=== PATIENT | female | born 1975 | race Asian ===

== ENCOUNTER 2025-02-22 06:03 | Inpatient (IN) | payer MEDICARE, BC, SELFPAY ==
[2025-02-22] VITALS (15 sets, daily range): BP systolic 114–174; BP diastolic 81–96; BMI 20.1
[2025-02-22] MEDS: SOLU-CORTEF 100 MG IV ×2 (02:02→02:47)
[2025-02-22] MEDS: NSS 1000 IV ×3 (02:02→10:50)
[2025-02-22] MEDS: BENADRYL 50 MG IV ×2 (02:02→20:06)
[2025-02-22] MEDS: PEPCID 20 MG IV ×3 (02:02→20:02)
[2025-02-22] MEDS: DILAUDID 2 MG IV (02:26)
[2025-02-22 02:27] LABS: HCG, Serum Qualitative Screen Negative; Hematocrit 40.0 % (37.0-47.0); Hemoglobin 14.2 g/dL (12.0-16.0); Mean Corp Hgb Conc. 35.5 g/dL (33.0-37.0); Mean Corpuscular Volume 80.3 fL (81.0-99.0); Nucleated Red Blood Cells % 0 %; Platelet Count 334 10^3/uL (130-400); Red Cell Dist. Width 13.9 % (11.5-14.5)
[2025-02-22 02:33] LABS: ALT (SGPT) 18 U/L (0-35); AST (SGOT) 21 U/L (14-36); Albumin 4.5 g/dl (3.5-5.0); Alkaline Phosphatase 75 U/L (38-126); Blood Urea Nitrogen 18 mg/dl (7-17); Calcium 9.5 mg/dl (8.4-10.2); Carbon Dioxide 23 mmol/L (22-30); Chloride 103 mmol/L (98-107); Estimated Creatinine Clearance 100 ml/min; Glucose 104 mg/dl (70-99); Potassium 3.9 mmol/L (3.5-5.1); Sodium 135 mmol/L (135-145); Total Protein 6.8 g/dl (6.3-8.2); eGFR > 60.00
[2025-02-22] MEDS: ZOFRAN 4 MG IV (02:47)
[2025-02-22] MEDS: BENADRYL 25 MG IV ×3 (02:47→17:25)
[2025-02-22 03:05] LABS: Cortisol, Random 2.6 ug/dl
[2025-02-22] MEDS: TORADOL 15 MG IV (03:38)
[2025-02-22] MEDS: DILAUDID 1 MG IV ×2 (03:39→08:02)
--- NOTE | 2025-02-22 04:10 | ED.GENMED ---
History of Present Illness
General
Chief Complaint: Abnormal Lab Value
Source: patient
Exam Limitations: none
Time Seen by Provider: 02/22/25 02:00
Nursing documentation reviewed up to this point in time: agreed with
History of Present Illness
History of Present Illness:
Note:
CHIEF COMPLAINT(S)
Breakthrough pain, severe musculoskeletal discomfort, possible infection.
HISTORY OF PRESENT ILLNESS
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 The patient presents with severe
musculoskeletal pain described as a burning sensation, likened to 'burning barbed wire wrapping around,' primarily affecting the central body, spine, and radiating upwards. The symptoms began escalating this weekend, requiring an adjustment of
prednisone to 15 mg, which she states is usually managed between 5 to 10 mg as prescribed by her focusing machine operator. She also describes experiencing extreme fatigue and sensitivity to touch, to the extent that even washing her hair is painful.
Recently, the patient had a severe episode last week with similar symptoms, which resolved after bed rest for approximately 72 hours. During that episode, white blood cell count was elevated to 21,000, prompting her focusing machine operator to advise further
evaluation for possible infection. She acknowledges a likely need for hospital admission, reporting that she typically gets admitted for similar episodes and receives Solu-Cortef.
The patient has a known regimen of medications adjusted in consultation with her healthcare providers at [place], including prednisone for lupus and management of her diabetes and thyroid issues by the endocrinology team. She reports taking
Valtrex for ulcer management as prescribed when she experiences immune-related blisters.
PAST MEDICAL AND SURGICAL HISTORY
- Systemic lupus erythematosus
- Adrenal insufficiency
- Diabetes mellitus secondary to steroid use
- Myocarditis (currently in remission)
- Early menopause due to cyclophosphamide and rituximab use
CHRONIC MEDICAL CONDITIONS SIGNIFICANTLY AFFECTING CARE
- Systemic lupus erythematosus
- Diabetes mellitus
- Adrenal insufficiency
- Myocarditis
ALLERGIES
The patient mentions having numerous allergies but specifies none in this session.
PAST MEDICAL HISTORY
As above in past medical and surgical history.
MEDICATIONS
- Prednisone, daily management dose typically 5-10 mg. Currently, self-adjusted to 15 mg due to symptom severity.
- Quetiapine taken at 7 PM to aid with rest in anticipation of an event.
- Trazodone 50 mg taken in the evening.
- Valtrex, taken for blisters tied to immune flair.
- Dilaudid, requested for breakthrough pain management.
REVIEW OF SYSTEMS
- Musculoskeletal: Severe central and spinal pain radiating up, described as burning.
- Integumentary: Recent rash with severe photosensitivity, cleared after management.
- Neurological: Episodes of dizziness, extreme fatigue.
- Endocrine: Adrenal insufficiency, steroid management challenges.
- Cardiovascular: Myocarditis in past remission, recent cardiac MRI investigated.
- General: Fatigue, feeling weak and exhausted.
PHYSICAL EXAM
General: Alert, moderate acute distress.
Skin: Warm, dry.
Head: Normocephalic, atraumatic.
Neck: Supple, trachea midline.
Eye Ears, nose, mouth and throat: Oral mucosa moist.
Cardiovascular: Normal peripheral perfusion, no edema.
Respiratory: Respirations are non-labored.
Gastrointestinal: Abdomen nondistended.
Back: Normal range of motion, normal alignment.
Musculoskeletal: Normal ROM, normal strength.
Neurological: Alert and oriented to person, place, time, and situation, no focal neurological deficit observed.
Psychiatric: Cooperative, appropriate mood & affect. Pressured speech
PROBLEM LIST
Acute Problems:
- Exacerbation of lupus-related symptoms
- Possible infection indicated by elevated WBC
Chronic Problems:
- Systemic lupus erythematosus
- Adrenal insufficiency
- Diabetes mellitus
- Myocarditis (in remission)
PLAN
- Admission for thorough evaluation and management.
- Plan to manage acute symptoms with continuation of Solu-Cortef as previously effective.
- Assess for potential infection with bacterial cultures given elevated WBC counts historically linked to infection risk.
- Pain management with Dilaudid and Toradol as needed.
- Monitor corticosteroid use with hospital guidance.
DIFFERENTIAL DIAGNOSIS
The Differential Diagnosis includes, in no particular order and is not limited to:
- Lupus flare
- Adrenal insufficiency crisis
- Steroid-induced hyperglycemia
- Infection (bacterial or viral)
- Fibromyalgia
- Peripheral neuropathy
- Myopathy
- Central nervous system autoimmune activity
- Medication-induced adverse effects
- Hypersensitivity reaction
Disposition:
SUMMARY OF ENCOUNTER
The patient is a 49-year-old female with a history of adrenal insufficiency and systemic lupus erythematosus who presented with symptoms suggesting acute adrenal insufficiency. The patient received Solu-Cortef in the emergency department, resulting
in some improvement. She has been receiving pain and nausea medications. Her white blood cell count is currently approximately 17,000, a decrease from an elevated count of 21,000 noted at an outside hospital the previous week. Given her medical
status, the decision was made to admit her for further management and evaluation.
DISPOSITION
Admit to hospital service.
ASSESSMENT
Acute adrenal insufficiency in the context of systemic lupus erythematosus flare.
EMERGENCY TREATMENTS ADMINISTERED
Solu-Cortef administered for adrenal insufficiency management.
INDEPENDENT REVIEW OF LABS AND INTERPRETATION OF TESTS
My independent review of the Complete Blood Count (CBC) shows leukocytosis with a white blood cell count of approximately 17,000.
PLAN
Admission to the hospital for further evaluation and management of acute adrenal insufficiency and lupus flare, along with monitoring and addressing potential infection.
MEDICATION RECONCILIATION
Administered Solu-Cortef for acute adrenal insufficiency management.
MEDICAL DECISION MAKING
-Complexity of Data Reviewed: Chronic conditions affecting care include systemic lupus erythematosus, adrenal insufficiency, and diabetes mellitus. Differential Diagnosis includes lupus flare, adrenal insufficiency crisis, infection, and potential
medication effects.
-Data:
Category 1
The reviewed lab test includes a Complete Blood Count (CBC) indicating leukocytosis.
-Risk:
Prescription medication was administered. Admission/observation was considered for complex management.
DIAGNOSIS
Acute Adrenal Insufficiency (E27.40)
Systemic Lupus Erythematosus (M32.9)
Past History
Past History
ED Past Medical History: HTN, Hypothyroidism and Other (SLE, pulmonary embolism, cardiac arrest, pyelonephritis, antiphospholipid syndrome, Lupus, Restrictive airway disease)
ED Past Surgical History: Cholecystectomy
Social History
Tobacco: Non-smoker
Alcohol: Occasional
Personal: Single
Living: with family
Employment: Employed
Family History
Family History: CAD (dad [place] in 40's from [place] age 65) and Cancer (mother has multiple myeloma)
Phy Exam
Physical Exam
Physical Exam:
.
Course
Orders/Labs/Results
Orders:
Orders
02/22/25 01:53
Hydrocortisone Sod Succinate [Solu-Cortef] 100 mg .ROUTE .[facility]
02/22/25 01:58
Diphenhydramine [Benadryl] 50 mg IV NOW STA
02/22/25 01:59
0.9% Sodium Chloride 1000 ml [Nss] 1,000 ml IV BOLUS
Famotidine [Pepcid] 20 mg IV NOW STA
Hydrocortisone Sod Succinate [Solu-Cortef] 100 mg IV NOW STA
02/22/25 02:10
Test Result ONCE
02/22/25 02:11
Complete Blood Count/With Diff Urgent
Comprehensive Metabolic Panel Urgent
Cortisol, Random Urgent
HCG, Serum Qualitative Screen Urgent
02/22/25 02:21
HYDROmorphone [Dilaudid] 2 mg IV NOW STA
02/22/25 02:42
Diphenhydramine [Benadryl] 25 mg IV NOW STA
02/22/25 02:43
Ondansetron Injectable [Zofran] 4 mg IV NOW STA
02/22/25 02:44
Hydrocortisone Sod Succinate [Solu-Cortef] 100 mg IV NOW STA
02/22/25 03:33
HYDROmorphone [Dilaudid] 1 mg IV NOW STA
Ketorolac [Toradol] 15 mg IV NOW STA
02/22/25 03:34
Urinalysis Reflex To Culture Urgent
Date Specimen was Collected: 02/22/25
Time Specimen was Collected: 04:08
02/22/25 03:35
CR Chest - 2 Views Urgent
Comment:
Reason For Exam: elev wbc
02/22/25 03:45
Blood Culture Q30M
CASANDRA Source: Blood/Venous
Specimen Description:
02/22/25 04:15
Blood Culture Q30M
CASANDRA Source: Blood/Venous
Specimen Description:
Abnormal Lab Results
02/22/25
02:11
WBC 17.6 H 10^3/uL
(4.8-10.8)
MCV 80.3 L fL
(81.0-99.0)
Abs Immat Gran (auto) 0.2 H 10^3/uL
(0-0.05)
Absolute Neuts (auto) 14.5 H 10^3/uL
(1.4-6.5)
Absolute Monos (auto) 1.2 H 10^3/uL
(0.1-0.6)
Immature Gran % 1.2 H %
(0-0.5)
Neutrophils % 82.4 H %
(42.2-75.2)
Lymphocytes % 9.2 L %
(20.5-51.1)
BUN 18 H mg/dl
(7-17)
Creatinine 0.5 L mg/dL
(0.6-1.0)
Glucose 104 H mg/dl
(70-99)
02/22/25 02:11
02/22/25 02:11
Vital Signs
Initial and Last Documented VS:
Initial Vital Signs
Pulse Resp BP Pulse Ox
54 28 174/88 98
02/22/25 01:15 02/22/25 01:15 02/22/25 01:15 02/22/25 01:15
Last Documented Vital Signs
Pulse Resp BP Pulse Ox
87 24 127/91 97
02/22/25 03:00 02/22/25 03:00 02/22/25 03:00 02/22/25 03:00
*Pulse Oximetry
SaO2: 97
Oxygen Mode of Delivery: Room air
Patient hypoxic: no
*Critical Care Note
Total Time (30-74mins, 75-104mins- exclusive of procedures): Not Applicable
ED Attending Note
-
Portions of this chart may have been created with voice recognition software.� Occasional wrong word or��sound alike� substitutions may have occurred due to the inherent limitations of voice recognition software.
Discharge Plan
Departure
Patient Disposition: Admit
Date of Disposition: 02/22/25
Time of Disposition: 04:10
Admit to: IVU
Presentation/result/management discussed w/ accepting MD/DO: Hospitalist
Condition: Fair
Discharge Problem:
Adrenal insufficiency, Chronic pain syndrome
Prescriptions:
No Action
levothyroxine 88 MCG tablet
88 mcg PO .DAILY EXPECT SAT/DEVINE
albuterol sulfate 1 PUFF HFA aerosol inhaler
2 puff inhalation R Q4 PRN (Reason: sob/wheezing)
nitroglycerin 0.4 MG tablet, sublingual
0.4 mg sublingual Q5MX3 PRN (Reason: chest pain)
Patient Comments:
last taken in march
alprazolam 0.5 mg Tablet
0.5 mg PO BID PRN (Reason: anxiety) Qty: 0
Patient Comments:
08/07/2022: last filled 07/26/22, 20 tabs for 10 days from [id number]
isosorbide mononitrate 60 mg tablet extended release 24 hr
60 mg PO BID
prednisone 1 mg tablet
10 mg PO DAILY
ergocalciferol (vitamin D2) 1,250 mcg (50,000 unit) capsule
1,250 mcg PO TH
metoprolol tartrate 25 mg tablet
25 mg PO BID
quetiapine 50 mg tablet
100 mg PO DAILY
desvenlafaxine succinate 50 mg tablet extended release 24 hr
100 mg PO DAILY
Jardiance 10 mg tablet
10 mg PO DAILY
fentanyl 50 mcg/hr patch 72 hour
75 mcg transdermal Q12H
Rx Instructions:
on abdomin
ondansetron HCl 8 mg tablet
8 mg PO Q8H PRN (Reason: nausea/vomiting)
lisinopril 10 mg Tablet
20 mg PO DAILY PRN (Reason: sbp>130)
quetiapine 150 mg tablet extended release 24 hr
150 mg PO HS
diphenhydramine HCl [Banophen] 25 MG capsule
50 mg PO Q4HPRN PRN (Reason: itching)
oxycodone 15 mg tablet
15 mg PO Q4H PRN (Reason: moderate to severe pain)
Patient Comments:
08/07/2022: last filled 06/25/22, 150 tabs for 30 days from [id number]
omeprazole 40 mg Capsule,Delayed Release(Dr/Ec)
40 mg PO DAILY
mycophenolate mofetil [CellCept] 500 mg Tablet
500 mg PO BID
Mounjaro 15 mg/0.5 mL Pen Injector
15 mg SC QWEEK
Referrals:
Kj Guzman MD [Family Provider, Family Practice]
Interventions
Interventions:
*Risk Screen - Suicide Last Done: 02/22/25 01:15
*General Assessment Last Done: 02/22/25 01:49
*Neglect/Abuse Screening Last Done: 02/22/25 01:15
*ED- Fall Risk Assessment Last Done: 02/22/25 01:49
*ED COVID-19 Vaccine History Last Done: 02/22/25 01:49
Discharge Date and Time
Print Language: SYRIAC
--- NOTE | 2025-02-22 04:35 | HPS.HSE ---
Family Physician
-
Family Physician: Kj Guzman
Chief Complaint
-
Adrenal crisis
History of Present Illness
This is a 49-year-old female with extensive past medical history that includes hypertension, hyperlipidemia, pvz-mhrkafk-ujolyjjfl diabetes, lupus complicated by lupus myocarditis, venous thromboembolism on anticoagulation but noncompliant,h
antiphospholipid syndrome, depression and anxiety and prior to adrenal insufficiency/Mario's disease, chronic pain on high-dose opioids at home who presents to the emergency department with complaints of adrenal insufficiency.
Patient reports symptoms began 2 weeks ago after the last dose of rituximab. The red that she had increase in WBCs to 20 and was told to be evaluated for possible infection. Patient reports that since then she has been having generalized anxiety,
generalized pain but mostly along the axial spine rib cage and neck. She also complains of associated headache. She said she had development of skin rash with scabbing for which she applied topical steroids and is improving. She denies any
hematuria. She denies any urinary symptoms. She has not had any fevers or chills. She has no nausea or vomiting. She is not been having any diarrhea. She has no joint swelling or redness. Patient denies any lower extremity edema. She has
recent PET scan of her heart which showed residual scar but no active inflammatory process.
Patient reports that she usually goes into adrenal crisis in the setting of reactions to either medications, infections or flare of lupus. She reports that her current symptoms with fatigue weakness restlessness and agitation or phone number
consistent with prior adrenal crisis. She usually takes at least 5 mg of prednisone daily but has been increasing the doses such that she has taken 50 mg daily over this weekend.
Patient feels that entire skin and body feels like it is on fire.
On arrival her blood pressure was 127/90 with a pulse of 87 and she was satting 97% on room air. She was afebrile.
She has leukocytosis to 17,000 otherwise CBC was unremarkable. Potassium was 3.9, bicarb was 23 BUN and creatinine were normal with a glucose of 104.
Chest x-ray was clear without infiltrates, effusions or pneumothorax.
Random serum cortisol was 2.6 at 2 AM. UA is pending.
Medical History
Past Medical History
Past Medical History: Reports Other
Additional Past Medical History:
Pulmonary embolism
Hypothyroid
V-fib arrest
Lung cancer
Lupus compicated by myocarditis
Asthma
Hypertension
Zec-vhhrseh-ywuxwurjl diabetes
CVA, lupus
Anxiety
Hyperlipidemia
Past Surgical History: Reports Cholecystectomy, , Orthopedic, Tonsilectomy and Other
Social History
Tobacco: Non-smoker
Alcohol: None
Drug: None
Family History
Family History: Not pertinent
Allergies / Home Medications
Allergies reflects when Allergies were last updated in [facility].
Home Medications with original date entered in [facility]
Allergy/Medication List:
Allergies
Allergy/AdvReac Type Severity Reaction Status Date / Time
acetaminophen (From Tylenol) Allergy Anaphylaxis Verified 02/22/25 01:19
cephalexin (From Keflex) Allergy CHEST PAIN Verified 02/22/25 01:19
ciprofloxacin (From Cipro) Allergy Anaphylaxis Verified 02/22/25 01:19
ciprofloxacin HCl (From Allergy Anaphylaxis Verified 02/22/25 01:19
Cipro)
clindamycin Allergy Swelling Verified 02/22/25 01:19
cyclobenzaprine Allergy Swelling Verified 02/22/25 01:19
doxycycline Allergy Hives Verified 02/22/25 01:19
Iodinated Contrast Media Allergy SOB, Verified 02/22/25 01:19
lip/tongue
swelling
latex (Latex) Allergy Hives Verified 02/22/25 01:19
nitrofurantoin Allergy Unknown Verified 02/22/25 01:19
macrocrystalline (From
Macrodantin)
Penicillins Allergy Anaphylaxis Verified 02/22/25 01:19
pneumococcal vaccine Allergy Nausea / Verified 02/22/25 01:19
Vomiting
sulfamethoxazole (From Allergy Anaphylaxis Verified 02/22/25 01:19
Bactrim)
trimethoprim (From Bactrim) Allergy Anaphylaxis Verified 02/22/25 01:19
vancomycin (Vancomycin) Allergy Anaphylaxis Verified 02/22/25 01:19
cycobenepine Allergy Swelling Uncoded 02/22/25 01:19
Home Medications
levothyroxine 88 mcg tablet 88 mcg PO .DAILY EXPECT SAT/DEVINE Thyroid 02/11/19
albuterol sulfate 90 mcg/actuation aerosol inhaler 2 puff inhalation R Q4 PRN sob/wheezing 03/17/19
nitroglycerin 0.4 mg sublingual tablet 0.4 mg sublingual Q5MX3 PRN chest pain 06/27/19
alprazolam 0.5 mg tablet 0.5 mg PO BID PRN anxiety ##0 12/25/19
desvenlafaxine succinate 50 mg tablet,extended release 24 hr 100 mg PO DAILY 08/07/22
diphenhydramine HCl 25 mg capsule (Banophen) 50 mg PO Q4HPRN PRN itching 08/07/22
empagliflozin 10 mg tablet (Jardiance) 10 mg PO DAILY 08/07/22
ergocalciferol (vitamin D2) 1,250 mcg (50,000 unit) capsule 1,250 mcg PO TH 08/07/22
fentanyl 50 mcg/hr transdermal patch 75 mcg transdermal Q12H 08/07/22
isosorbide mononitrate 60 mg tablet,extended release 24 hr 60 mg PO BID 08/07/22
lisinopril 10 mg tablet 20 mg PO DAILY PRN sbp>130 08/07/22
metoprolol tartrate 25 mg tablet 25 mg PO BID 08/07/22
ondansetron HCl 8 mg tablet 8 mg PO Q8H PRN nausea/vomiting 08/07/22
oxycodone 15 mg tablet 15 mg PO Q4H PRN moderate to severe pain 08/07/22
prednisone 1 mg tablet 10 mg PO DAILY 08/07/22
quetiapine 150 mg tablet,extended release 24 hr 150 mg PO HS 08/07/22
quetiapine 50 mg tablet 100 mg PO DAILY 08/07/22
mycophenolate mofetil 500 mg tablet (CellCept) 500 mg PO BID 02/22/25
omeprazole 40 mg capsule,delayed release 40 mg PO DAILY 02/22/25
tirzepatide 15 mg/0.5 mL subcutaneous pen injector (Mounjaro) 15 mg SC QWEEK 02/22/25
Review of Systems
-
Constitutional: Reports No Symptoms
EENT: Reports No Symptoms
Respiratory: Reports No Symptoms
Cardiac: Reports No Symptoms
Abdomen/GI: Reports No Symptoms
: Reports No Symptoms
Musculoskeletal: Reports No Symptoms
Skin: Reports No Symptoms
Neurological: Reports Headache and Weakness
Endocrine: Reports No Symptoms and Temp Intolerance
Hematologic/Lymphatic: Reports No Symptoms
Psych: Reports No Symptoms
Physical Exam
Vital Signs
Vital Signs
Pulse Resp BP Pulse Ox
87 24 127/91 97
02/22/25 03:00 02/22/25 03:00 02/22/25 03:00 02/22/25 04:12
Physical Exam
General: Well Developed, Well Nourished and No Apparent Distress
HEENT: NormoCephalic, Moist mucous membranes and Atraumatic
Respiratory: Clear
Cardiac: S1/S2 and Regular Rhythm; No Murmur or Rub
GI: Soft, Non Tender, Non Distended and Normal Bowel Sounds; No Organomegaly
Rectal: Deferred by Provider
Musculoskeletal: No Clubbing, No Cyanosis and No Edema
Skin: No Rash
Neuro: Nonfocal/grossly intact
Hematologic/Lymphatic: No Lymphadenopathy
Psych: Calm
Laboratory Results
-
02/22/25 02:11
02/22/25 02:11
Laboratory Results
Total Bilirubin 0.3 mg/dl (0.2-1.3) 02/22/25 02:11
AST 21 U/L (14-36) 02/22/25 02:11
ALT 18 U/L (0-35) 02/22/25 02:11
Alkaline Phosphatase 75 U/L (38-126) 02/22/25 02:11
Data Reviewed
-
Diagnostic Radiology: Image Personally Visualized and interpreted
Lab Data: Labs Reviewed by me
Old Records: Reviewed
Impression/Plan
-
IMPRESSION:
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
chest discomfort similar ot prior episode of adrenal crisis. She is afebrile, BP is normal at 127/90, normal oxgenation. Xray clear and no cough. No signs of infection. WBC 17.6. U/A pending.
Random cortisol is low at 2.6 at 2am.
PLAN:
Adrenal crisis - HD stable. No electrolyte abnormalities
- admit to med/surg
- solu-cortef 200 given in ED, continue 50 iv q 6 x 24 hours then q 12 hours
- IV NS at 100ml/hr for now
- daily labs
Leukocytosis - Leukomoid reaction likely. No evidence of acute infection. Xray clear, no coug/sob.
- u/a pending
- Urine culture, blood culture
- monitor for now off antibiotics
- Patient reports CVA allergies reactions to almost all antibiotics that requires Benadryl predosing for any antibiotic. Will hold off antibiotics for now
HTN
- in setting of adrenal crises, hold lisinopril for now
CAD
- Continue Imdur
- Continue metoprolol
DM II
- slidng scale insulin
- continue jardiance
- On Mounjaro at home
BIPOLAR/Depression
- continue her seroquel,
- Pristiq
Lupus -thought to be in remission, status post rituximab 2 weeks ago which she gets every 4 months.
- Check inflammatory markers, ZAINAB and double-stranded DNA serologies
- Continue CellCept
- She is on high-dose steroids currently
- If markedly elevated inflammatory markers will need transfer to [place]
Pulmonary embolism
- Continue Lovenox 50 mg subcu every 12
Chronic pain -appears to be combination of rheumatological and reflex sympathetic versus neuropathic pain. On longstanding opioids
- Continue fentanyl patch, continue oxycodone at 50 mg p.o. every 6 hours as needed moderate pain, Dilaudid 1 mg IV every 4 hours as needed for severe pain
- Bowel regimen
CODE STATUS�full code
[2025-02-22 05:46] LABS: Urine Character Clear (Clear)
[2025-02-22] MEDS: ROXICODONE 15 MG PO (06:14)
[2025-02-22 06:42] LABS: C-Reactive Protein 27.10 mg/L (0.0-10.00)
--- NOTE | 2025-02-22 07:32 | W.PN.HOSP.TC ---
Today's Communication/Plan
-
see A/P
Assessment / Plan
Assessment / Plan
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
syndrome, depression and anxiety and prior to adrenal insufficiency/[place]'s disease, chronic pain on high-dose opioids at home who presented to ED with complaint of shakes, fatigue/weakness, restlessness and chest discomfort similar to prior
episode of adrenal crisis.
Symptoms began 2 weeks ago [employer] after the last dose of rituximab.Patient reports that she usually goes into adrenal crisis in the setting of reactions to either medications, infections or flare of lupus. She reports that her current symptoms with
fatigue weakness restlessness and agitation consistent with prior adrenal crisis. She usually takes at least 5 mg of prednisone daily but has been increasing the doses such that she has taken 50 mg daily over this weekend.
She was afebrile, BP normal at 127/90, and normal oxygenation on admission. Xray clear and no cough. No signs of infection. WBC 17.6.
Random cortisol low at 2.6 at 2am.
A/P:
# Possible Adrenal crisis - HD stable. No electrolyte abnormalities
# generalized pain
s/p solu-cortef 200 given in ED, continue 50 iv q 6 x 24 hours, then taper back to home dose
IV NSS at 100ml/hr for now
Searched on PDMP, pt is only prescribed opiates fentanyl patch and oxycodone 15 mg [employer]; cont [employer] fentanyl patch, oxycodone PRN and current IV Dilaudid 1 mg Q4H PRN.
Would NOT escalate current pain regimen.
Cont to monitor daily labs
# Leukocytosis - Leukemoid reaction likely.
No evidence of acute infection currently.
inflammatory markers CRP 27, ESR 6, both are low
Xray clear- follow formal report. No cough/sob.
Follow blood cultures
UA clean
monitor for now off antibiotics. Patient reports CVA allergies reactions to almost all antibiotics that requires Benadryl predosing for any antibiotic. Will hold off antibiotics for now
# HTN
in setting of adrenal crises, hold lisinopril for now
BP stabke off med
# CAD
Continue Imdur
Continue metoprolol
# DM II
slidng scale insulin
continue jardiance
On Mounjaro at home
# BIPOLAR/Depression
continue her seroquel,
Pristiq
# Lupus- thought to be in remission, status post rituximab 2 weeks [employer] which she gets every 4 months.
inflammatory markers CRP 27, ESR 6, both are low
ZAINAB and double-stranded DNA serologies sent, follow up
Continue CellCept
She is on high-dose steroids currently
If markedly elevated inflammatory markers will need transfer to [place]
# Pulmonary embolism
Continue Lovenox 50 mg subcu every 12
# Chronic pain- appears to be combination of rheumatological and reflex sympathetic versus neuropathic pain. On longstanding opioids
Continue fentanyl patch, continue oxycodone at 50 mg p.o. every 6 hours as needed moderate pain, Dilaudid 1 mg IV every 4 hours as needed for severe pain
Bowel regimen
DVT ppx: [employer] therapeutic Lovenox SQ
CODE STATUS�full code
total time 51 min
Anticipated Discharge: > 48 hours
Subjective/Interval History
-
Date of Service: February 22, 2025
Objective Data
-
Labs:
Laboratory Results
02/22/25
02:11
WBC 17.6 H
Hgb 14.2
Hct 40.0
Plt Count 334
Sodium 135
Potassium 3.9
Chloride 103
Carbon Dioxide 23
BUN 18 H
Creatinine 0.5 L
Glucose 104 H
Calcium 9.5
Total Bilirubin 0.3
AST 21
ALT 18
Alkaline Phosphatase 75
Vital Signs:
Vital Signs
Pulse Resp BP Pulse Ox
91 23 114/83 97
02/22/25 04:45 02/22/25 04:45 02/22/25 04:45 02/22/25 04:45
Review of Systems
-
History Source: Patient
Constitutional: Reports Other (generalized pain)
Physical Exam
-
General: Well Developed, Well Nourished, No Apparent Distress, Comfortable and Conversant; Negative Respiratory Distress
HEENT: Normocephalic, Atraumatic, Nose Appears Normal and Ears Appear Normal; Negative Oxygen
Respiratory: Clear to Auscultation and Non Labored Respirations; Negative Accessory Resp Muscle Use
Cardiac: Regular Rhythm and S1/S2
GI: Soft, Nontender, Nondistended and Normal Bowel Sounds
Skin: Warm and Dry
Neuro: Awake, Alert and Oriented
Psych: Calm and Intact Judgement/Insight
Data Reviewed
-
Labs: Labs Reviewed by me
[2025-02-22] MEDS: LOVENOX 50 MG SC ×2 (08:05→20:05)
[2025-02-22] MEDS: TOPROL XL 25 MG PO ×2 (08:11→20:04)
--- NOTE | 2025-02-22 09:54 | EDRN ---
Patient taken to room 335-1 on stretcher with NSS infusing. Morning medicine not given per Catrachita Pharmacist. Catrachita stated that she was contacting to change medication orders.
[2025-02-22] MEDS: NSS (PRESERVATIVE FREE) 8 ML IV ×2 (10:54→20:03)
[2025-02-22] MEDS: SOLU-CORTEF 50 MG IV ×3 (11:01→23:12)
[2025-02-22] MEDS: REMOVE DURAGESIC PATCH 75 PATCH REMOVE (11:19)
[2025-02-22] MEDS: DILAUDID 1.5 MG IV ×3 (11:30→20:01)
[2025-02-22 11:38] LABS: Glucose - Point of Care 116 mg/dl (70-99)
[2025-02-22] MEDS: NOVOLOG FLEXPEN-LOW RESISTANCE SC ×2 (11:40→16:44)
[2025-02-22] MEDS: VALIUM INJECTION 5 MG IV ×3 (12:25→23:10)
[2025-02-22] MEDS: ZOFRAN 54 MG IV (13:03)
--- NOTE | 2025-02-22 13:38 | PTCARENOTE ---
Pt arrived to unit around 1200 this shift. She ambulated from stretcher to bed. Oriented to staff and room. All medications reviewed. Plan of care ongoing.
[2025-02-22] MEDS: XANAX 0.5 MG PO (15:06)
[2025-02-22 16:40] LABS: Glucose - Point of Care 148 mg/dl (70-99)
[2025-02-22] MEDS: TORADOL 30 MG IV (17:24)
[2025-02-22] MEDS: ROXICODONE 30 MG PO (18:28)
[2025-02-22 20:02] LABS: Glucose - Point of Care 132 mg/dl (70-99)
[2025-02-22 21:23] LABS: Glucose - Point of Care 164 mg/dl (70-99)
--- NOTE | 2025-02-22 22:53 | W.PN.UPDATE ---
Update Note
Progress Note Update
Patient seen multiple times so far this shift. ~ 20:00 Patient stated she was in 'crisis' and needed her medications increased. Patient states she is burning and feels like there is payton wire wrapped around her nerves. Patient vital signs: 98.1 oral
temp, BP 126/91, HR 97, Resp 18, 98% on room air. Patient does appear anxious and restless. Scheduled/prn medications given as ordered. Patient appeared much calmer after medications given, patient agrees that her symptoms are better controlled.
Patient is concerned that she will go into 'crisis' again tonight and is requesting multiple changes to her treatment plan and increased doses of steroids and pain medications.
Patient is very insistent that she needs to follow her regimen from her [employer], but has no such plan in print, states she has no access to plan. 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
[2025-02-22] MEDS: DESYREL 50 MG PO (23:09)
[2025-02-22] MEDS: NON-FORMULARY ITEM 1 MG PO (23:11)
[2025-02-23] MEDS: DILAUDID 1.5 MG IV ×6 (00:21→22:45)
[2025-02-23] MEDS: BENADRYL 25 MG IV ×5 (00:22→22:45)
[2025-02-23] MEDS: BENADRYL 50 MG IV ×3 (01:39→10:01)
--- NOTE | 2025-02-23 02:32 | PTCARENOTE ---
Patient demonstrates unrealistic expectations regarding medication administration timing. She requests scheduling and doses be changed based on her preferences. She appears to lack understanding of nursing workflow and prioritization of care needs
among multiple patients. Behavior is impacting therapeutic relationship and creating challenge in care delivery. Pt stated 'I don't appreciate my care team disappearing for 2 hours at a time delaying my care.' This RN was out of Pt's room for 45 min
doing an admission. Prior to this spent over an hour with Pt reconciling medication list. Pt wrote all PRN medications on white board in room with times they are due and stated 'these should be brought to me within 5-10 minutes of when they are
due.' This RN explained PRN meds are to be given when there is a need for a specific medication, Pt refuted that explanation and demanded that meds be given as soon as available.
[2025-02-23] MEDS: TORADOL 30 MG IV ×2 (05:09→15:01)
[2025-02-23] MEDS: SOLU-CORTEF 50 MG IV ×2 (05:52→20:15)
[2025-02-23] MEDS: ZOFRAN 54 MG IV ×3 (05:53→22:10)
[2025-02-23] MEDS: NON-FORMULARY ITEM 1 UNIT PO ×2 (06:00→08:28)
[2025-02-23 06:43] LABS: Hematocrit 38.8 % (37.0-47.0); Hemoglobin 13.0 g/dL (12.0-16.0); Mean Corp Hgb Conc. 33.5 g/dL (33.0-37.0); Mean Corpuscular Volume 83.6 fL (81.0-99.0); Nucleated Red Blood Cells % 0 %; Platelet Count 328 10^3/uL (130-400); Red Cell Dist. Width 14.4 % (11.5-14.5)
[2025-02-23 07:19] LABS: Blood Urea Nitrogen 17 mg/dl (7-17); Calcium 8.9 mg/dl (8.4-10.2); Carbon Dioxide 23 mmol/L (22-30); Chloride 109 mmol/L (98-107); Estimated Creatinine Clearance 100 ml/min; Glucose 136 mg/dl (70-99); Magnesium 2.1 mg/dl (1.6-2.3); Potassium 3.9 mmol/L (3.5-5.1); Sodium 138 mmol/L (135-145); eGFR > 60.00
[2025-02-23 07:39] LABS: Glucose - Point of Care 144 mg/dl (70-99)
[2025-02-23 07:48] VITALS: BP 139/92
[2025-02-23] MEDS: NOVOLOG FLEXPEN-LOW RESISTANCE SC ×3 (08:05→16:42)
[2025-02-23] MEDS: ROXICODONE 30 MG PO ×2 (08:12→20:13)
[2025-02-23] MEDS: XANAX 0.5 MG PO (08:14)
[2025-02-23] MEDS: IMDUR (EXTENDED RELEASE) 60 MG PO (08:15)
[2025-02-23] MEDS: SEROQUEL 100 MG PO (08:15)
[2025-02-23] MEDS: TOPROL XL 25 MG PO (08:17)
[2025-02-23] MEDS: PEPCID 20 MG IV ×2 (08:19→20:15)
[2025-02-23] MEDS: NSS (PRESERVATIVE FREE) 8 ML IV ×2 (08:20→20:15)
[2025-02-23] MEDS: NON-FORMULARY ITEM 1 MG PO (08:22)
[2025-02-23] MEDS: NON-FORMULARY ITEM 140 MG SC (08:22)
[2025-02-23] MEDS: LOVENOX 50 MG SC ×2 (08:25→20:14)
[2025-02-23] MEDS: FLUSH (NSS) 2 FLUSH IV ×2 (09:17→10:03)
--- NOTE | 2025-02-23 10:00 | PTCARENOTE ---
pt constantly asking for patient medication and reports pain level between 7-9. appetite poor, anxious, c/o nausea but no vomiting. independent in room, receiving PRN OxyContin, Xanax, Dilaudid, Benadryl, Valium, Zofran, Toradol and Linzess. (see
MAR), with some relief, will continue to monitor.
--- NOTE | 2025-02-23 10:29 | W.PN.HOSP.TC ---
Today's Communication/Plan
-
see A/P
Assessment / Plan
Assessment / Plan
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
syndrome, depression and anxiety and prior to adrenal insufficiency/Mario's disease, chronic pain on high-dose opioids at home who presented to ED with complaint of shakes, fatigue/weakness, restlessness and chest discomfort similar to prior
episode of adrenal crisis.
Symptoms began 2 weeks ago HOUSEKEEPING AID after the last dose of rituximab.Patient reports that she usually goes into adrenal crisis in the setting of reactions to either medications, infections or flare of lupus. She reports that her current symptoms with
fatigue weakness restlessness and agitation consistent with prior adrenal crisis. She usually takes at least 5 mg of prednisone daily but has been increasing the doses such that she has taken 50 mg daily over this weekend.
She was afebrile, BP normal at 127/90, and normal oxygenation on admission. Xray clear and no cough. No signs of infection. WBC 17.6.
Random cortisol low at 2.6 which is consistent with steroid use.
A/P:
# Questionable Adrenal crisis - HD stable. No electrolyte abnormalities
# Subjective generalized pain
# Concern of drug seeking behavior
Random cortisol low at 2.6 on admission, which is consistent with steroid use.
s/p solu-cortef 200 mg in ED, cont steroid with plan for quick taper back to home dose
low suspicion of adrenal crisis (sodium WNL, potassium level WNL, BG WNL, BP WNL)
Searched on PDMP, pt is only prescribed opiates fentanyl patch and oxycodone 15 mg [employer]SEKEEPING AID
d/w pharmacist extensively, cont [employer]KEEP[employer] AID fentanyl patch, oxycodone PRN, current IV Dilaudid PRN
Would NOT escalate current pain regimen with low suspicion of adrenal crisis
Check UDS, and anticipate it would at least be positive with opiate and benzo as pt has received these while in the hospital
Cont to monitor daily labs
IV NSS at 100ml/hr for now
# Acute TME, confusion and pressured speech
suspect steroid effect,
consider yanira as ddx, Psych CS
Limit use of narcotics/benzo etc.
Monitor MS
# Leukocytosis - likely leukemoid reaction and steroid effect
No evidence of acute infection currently.
inflammatory markers CRP 27, ESR 6, both are low
CXR clear, Blood cultures x2 sets so far negative, UA clean
monitor for now off antibiotics. Patient reports CVA allergies reactions to almost all antibiotics that requires Benadryl predosing for any antibiotic. Will hold off antibiotics for now
# HTN
Low suspicion of adrenal crises, resume HOUSEKEEPING AID lisinopril
BP stable off med
# CAD
Continue Imdur
Continue metoprolol
# DM II
sliding scale insulin
continue Jardiance
On Mounjaro at home, hold during hospital stay as pt c/o Nausea
# BIPOLAR/Depression
continue HOUSEKEEPING AID Seroquel, Pristiq
# Lupus- thought to be in remission, status post rituximab 2 weeks [employer]KEEPING AID which she gets every 4 months.
inflammatory markers CRP 27, ESR 6, both are low
ZAINAB and double-stranded DNA serologies sent, follow up
Continue CellCept
She is on high-dose steroids currently
# Pulmonary embolism
Continue Lovenox 50 mg subcu every 12
# Chronic pain and opiate dependence
appears to be combination of rheumatological and reflex sympathetic versus neuropathic pain. On longstanding opioids
Continue fentanyl patch, oxycodone, IV Dilaudid PRN
Bowel regimen
DVT ppx: HOUSEKEEPING AID therapeutic Lovenox SQ
CODE STATUS�full code
DW RN
total time 51 min
Anticipated Discharge: > 48 hours
Subjective/Interval History
-
Date of Service: February 23, 2025
Objective Data
-
Labs:
Laboratory Results
02/23/25
05:43
WBC 15.4 H
Hgb 13.0
Hct 38.8
Plt Count 328
Sodium 138
Potassium 3.9
Chloride 109 H
Carbon Dioxide 23
BUN 17
Creatinine 0.5 L
Glucose 136 H
Calcium 8.9
Vital Signs:
Vital Signs
Temp Pulse Resp BP Pulse Ox
36.8 C 79 14 139/92 99
02/23/25 07:48 02/23/25 08:17 02/23/25 07:48 02/23/25 08:17 02/23/25 07:48
I&O
02/22/25 02/23/25 02/24/25
06:59 06:59 06:59
Intake Total 1140 / 1140 480 / 480
Balance 1140 / 1140 480 / 480
Review of Systems
-
Unable to obtain full review of systems at this time due to: Acuity (confused)
Physical Exam
-
General: Well Developed, Well Nourished, No Apparent Distress, Comfortable and Conversant (pressure speech, tangential ); Negative Respiratory Distress
HEENT: Normocephalic, Atraumatic, Nose Appears Normal and Ears Appear Normal; Negative Oxygen
Respiratory: Clear to Auscultation and Non Labored Respirations; Negative Accessory Resp Muscle Use
Cardiac: Regular Rhythm and S1/S2
GI: Soft, Nontender, Nondistended and Normal Bowel Sounds
Skin: Warm and Dry
Neuro: Awake and Nonfocal/Grossly Intact
Psych: Calm and Confused
Data Reviewed
-
Labs: Labs Reviewed by me
[2025-02-23] MEDS: VALIUM INJECTION 5 MG IV ×3 (11:17→21:46)
[2025-02-23] MEDS: ZESTRIL 20 MG PO (11:33)
[2025-02-23 11:34] LABS: Glucose - Point of Care 130 mg/dl (70-99)
[2025-02-23] MEDS: CLOBETASOL PROPIONATE 0.05% CREAM 1 APPLIC TOPICAL (11:37)
[2025-02-23] MEDS: SOLU-CORTEF IV (12:49)
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
--- NOTE | 2025-02-23 14:46 | PTCARENOTE ---
patient was on telemetry when I took over care this am. night auditor nurse verbalized to me it was because patient was on 'higher dose of Zofran'. telemetry not ordered for patient. I tiger texted Dr. Uribe if she wanted to transfer patient to
telemetry and she said no. telemetry recommended for greater or equal to 16mgs IV. patient is ordered 8mgs. will take patient off telemetry, will continue to monitor.
[2025-02-23 15:01] VITALS: BP 106/70
--- NOTE | 2025-02-23 16:01 | CM ---
CM reviewed chart, attempted to see patient several times, each time patient was meeting with Hospital staff. CM spoke with patient to complete initial assessment, patient requesting to complete assessment tomorrow. Psych following patient.
Plan; patient requesting for initial assessment to be completed tomorrow
--- NOTE | 2025-02-23 16:15 | PTCARENOTE ---
at 10:29, as Dr. Uribe was rounding on patient, patient speech, rapid, pressured, appears anxious, confused. appearing manic. talking about asking for safety pins in utility closet, leaving hospital to go to her families wedding and asked PCT Krystle
to call her brothers to come open utility closet, rearranging N-95 masks that were in her room closet. vss. Dr. Uribe suspects due to steroids. She is going to consult psychiatry, changing Benadryl to 25mgs q4hrs PRN and running dose d/c'd.
Solumedrol changed to 50mgs IV q12hrs. She wants to limit narcotics and Benzo's. will continue to monitor.
[2025-02-23 16:41] LABS: Glucose - Point of Care 105 mg/dl (70-99)
--- NOTE | 2025-02-23 19:30 | PTCARENOTE ---
at 1841, patient rang call giles and was wrapped up with blanket around her head, shivering and verbalized that she had a temperature. oral temp 100.7. patient verbalized that she needs to be transferred to ICU, since she's immunocompromised. tiger
texted Dr. Uribe and she is ordering blood cultures and monitor and feels there is low suspicion of infection and there is no indication to transfer patient to ICU at this time. Then at 185, patient reported that she had large episode of diarrhea
and flank pain and feels like she has pyelonephritis. this was her first stool since admission. she's requesting higher dose of steroids and Dr. Uribe is not increasing them due to episode of altered mental status patient experienced. next shift RN
Josy made aware to follow up.
[2025-02-23] MEDS: TOPROL XL PO (20:13)
[2025-02-23 21:39] LABS: Glucose - Point of Care 134 mg/dl (70-99)
[2025-02-23] MEDS: DESYREL 50 MG PO (22:15)
[2025-02-23] MEDS: NON-FORMULARY ITEM 150 MG PO (22:15)
[2025-02-23 23:47] VITALS: BP 108/79
[2025-02-24] MEDS: TORADOL 30 MG IV ×2 (01:02→18:26)
[2025-02-24 02:06] LABS: ANA, IgG Reflex to HEp-2 None Detected (None Detected)
[2025-02-24] MEDS: NON-FORMULARY ITEM 1 UNIT PO (06:36)
[2025-02-24] MEDS: BENADRYL 25 MG IV ×5 (06:37→23:51)
[2025-02-24] MEDS: DILAUDID 1.5 MG IV ×5 (06:38→23:52)
[2025-02-24 07:00] VITALS: BP 94/60
[2025-02-24 07:40] LABS: Hematocrit 35.6 % (37.0-47.0); Hemoglobin 11.8 g/dL (12.0-16.0); Mean Corp Hgb Conc. 33.1 g/dL (33.0-37.0); Mean Corpuscular Volume 84.6 fL (81.0-99.0); Nucleated Red Blood Cells % 0 %; Platelet Count 301 10^3/uL (130-400); Red Cell Dist. Width 14.7 % (11.5-14.5)
[2025-02-24] MEDS: LOVENOX 50 MG SC ×2 (07:42→20:17)
[2025-02-24] MEDS: NSS (PRESERVATIVE FREE) 8 ML IV ×2 (07:43→20:16)
[2025-02-24] MEDS: PEPCID 20 MG IV ×2 (07:43→20:16)
[2025-02-24] MEDS: SOLU-CORTEF 50 MG IV (07:44)
[2025-02-24] MEDS: SEROQUEL 100 MG PO (07:44)
[2025-02-24] MEDS: VALIUM INJECTION 5 MG IV ×4 (07:45→22:26)
[2025-02-24] MEDS: TOPROL XL PO (07:47)
[2025-02-24 07:48] LABS: Glucose - Point of Care 176 mg/dl (70-99)
[2025-02-24] MEDS: NON-FORMULARY ITEM 100 MG PO (07:56)
[2025-02-24 08:16] VITALS: BP 94/60
[2025-02-24 08:20] LABS: Blood Urea Nitrogen 13 mg/dl (7-17); Calcium 7.4 mg/dl (8.4-10.2); Carbon Dioxide 23 mmol/L (22-30); Chloride 110 mmol/L (98-107); Estimated Creatinine Clearance 100 ml/min; Glucose 138 mg/dl (70-99); Potassium 3.3 mmol/L (3.5-5.1); Sodium 139 mmol/L (135-145); eGFR > 60.00
[2025-02-24 08:24] LABS: C-Reactive Protein 42.80 mg/L (0.0-10.00)
[2025-02-24] MEDS: ZOFRAN 54 MG IV (08:35)
[2025-02-24] MEDS: NOVOLOG FLEXPEN-LOW RESISTANCE 1 UNITS SC (08:36)
[2025-02-24 09:40] VITALS: BP 134/90
[2025-02-24] MEDS: IMDUR (EXTENDED RELEASE) 60 MG PO (09:52)
--- NOTE | 2025-02-24 11:15 | W.PN.HOSP.TC ---
Today's Communication/Plan
-
see A/P
Assessment / Plan
Assessment / Plan
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
syndrome, depression and anxiety and prior to adrenal insufficiency/Mario's disease, chronic pain on high-dose opioids at home who presented to ED with complaint of shakes, fatigue/weakness, restlessness and chest discomfort similar to prior
episode of adrenal crisis.
Symptoms began 2 weeks ago HAT CUTTER after the last dose of rituximab.Patient reports that she usually goes into adrenal crisis in the setting of reactions to either medications, infections or flare of lupus. She reports that her current symptoms with
fatigue weakness restlessness and agitation consistent with prior adrenal crisis. She usually takes at least 5 mg of prednisone daily but has been increasing the doses such that she has taken 50 mg daily over this weekend.
She was afebrile, BP normal at 127/90, and normal oxygenation on admission. Xray clear and no cough. No signs of infection. WBC 17.6.
Random cortisol low at 2.6 which is consistent with steroid use.
A/P:
# Questionable Adrenal crisis - HD stable. No electrolyte abnormalities
# Subjective generalized pain
# Concern of drug seeking behavior
Random cortisol low at 2.6 on admission, which is consistent with steroid use.
low suspicion of adrenal crisis (sodium WNL, potassium level WNL, BG WNL, BP WNL)
s/p solu-cortef 200 mg in ED, cont steroid with plan for quick taper back to home dose , given concern of current high dose steroid causing delirium
Searched on PDMP, pt is only prescribed opiates fentanyl patch and oxycodone 15 mg HAT CUTTER
d/w pharmacist extensively, cont HAT CUTTER fentanyl patch, oxycodone PRN, current IV Dilaudid PRN
Would NOT escalate current pain regimen with low suspicion of adrenal crisis
UDS noted, also noted positive for marijuana which could cause N/V/cyclic vomiting syndrome
Encourage pt to try hot shower and lidocaine cream to see if this could relieve her nausea/cyclic vomiting syndrome
Cont to monitor daily labs
IV NSS at 100ml/hr for now
# Acute TME/delirium, occasional confusion with pressured speech and tangential thought
suspect steroid effect with yanira
Appreciate Psych input
Limit use of narcotics/benzo etc.
Monitor MS
# Leukocytosis - likely leukemoid reaction and steroid effect
No evidence of acute infection currently.
inflammatory markers CRP 27, ESR 6 on admission
CXR clear, Blood cultures x2 sets so far negative, UA clean
repeat Blood cultures ordered 02/23 for chills, follow up results
monitor for now off antibiotics. Patient reports CVA allergies reactions to almost all antibiotics that requires Benadryl predosing for any antibiotic. Will hold off antibiotics for now
# HTN
Low suspicion of adrenal crises, resumed HAT CUTTER lisinopril
BP stable off med
# CAD
Continue Imdur
Continue metoprolol
# DM II
sliding scale insulin
continue Jardiance
On Mounjaro at home, hold during hospital stay as pt c/o Nausea
# BIPOLAR/Depression
continue HAT CUTTER Seroquel, Pristiq
# Lupus- thought to be in remission, status post rituximab 2 weeks HAT CUTTER which she gets every 4 months.
inflammatory markers CRP 27, ESR 6, both are low
ZAINAB negative,
pending double-stranded DNA serologies
Continue CellCept
She is on high-dose steroids currently
# Pulmonary embolism
Continue Lovenox 50 mg subcu every 12
# Chronic pain and opiate dependence
appears to be combination of rheumatological and reflex sympathetic versus neuropathic pain. On longstanding opioids
Continue fentanyl patch, oxycodone, IV Dilaudid PRN
Bowel regimen
DVT ppx: HAT CUTTER therapeutic Lovenox SQ
CODE STATUS�full code
DW RN
DW Psych
total time 51 min
Anticipated Discharge: > 48 hours
Subjective/Interval History
-
Date of Service: February 24, 2025
Objective Data
-
Labs:
Laboratory Results
02/24/25
06:52
WBC 12.9 H
Hgb 11.8 L
Hct 35.6 L
Plt Count 301
Sodium 139
Potassium 3.3 L
Chloride 110 H
Carbon Dioxide 23
BUN 13
Creatinine 0.5 L
Glucose 138 H
Calcium 7.4 L D
Vital Signs:
Vital Signs
Temp Pulse Resp BP Pulse Ox
36.7 C 113 17 134/90 98
02/24/25 07:00 02/24/25 07:00 02/24/25 07:00 02/24/25 09:40 02/24/25 07:15
I&O
02/23/25 02/24/25 02/25/25
06:59 06:59 06:59
Intake Total 1140 / 1140 2099
Balance 1140 / 1140 2099
Review of Systems
-
History Source: Patient
Abdomen/GI: Reports Nausea; Denies Vomiting
Physical Exam
-
General: Well Developed, Well Nourished, No Apparent Distress, Comfortable and Conversant; Negative Respiratory Distress
HEENT: Normocephalic, Atraumatic, Nose Appears Normal and Ears Appear Normal; Negative Oxygen
Respiratory: Clear to Auscultation and Non Labored Respirations; Negative Accessory Resp Muscle Use
Cardiac: Regular Rhythm and S1/S2
GI: Soft, Nontender, Nondistended and Normal Bowel Sounds
Skin: Warm and Dry
Neuro: Awake, Alert and Nonfocal/Grossly Intact
Psych: Calm and Intact Judgement/Insight (somewhat)
Data Reviewed
-
Labs: Labs Reviewed by me
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
[2025-02-24] MEDS: KCL 40 MEQ PO (12:01)
[2025-02-24 12:14] LABS: Glucose - Point of Care 220 mg/dl (70-99)
[2025-02-24] MEDS: NOVOLOG FLEXPEN-LOW RESISTANCE 3 UNITS SC (13:48)
[2025-02-24] MEDS: LMX 4 1 APPLIC TOPICAL (13:49)
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
[2025-02-24] MEDS: ROXICODONE 30 MG PO (14:16)
[2025-02-24 15:35] VITALS: BP 117/81
[2025-02-24 15:40] VITALS: BP 117/81
[2025-02-24] MEDS: ZOFRAN 4 MG IV ×2 (15:41→22:25)
--- NOTE | 2025-02-24 15:52 | CM ---
Alert awake oriented patient who lives alone in a 2 story home with 2 steps to enter and 14 steps to bed/bathroom. Her brother is supportive,
She is independent with driving and all Adls. Offered VN she delcined need.
NO adaptive devices
[facility] VN hx No SNF hx
Pharmacy [facility] Td
PCP Dr Guzman
PLAN Home no needs
[2025-02-24 16:46] LABS: ds-DNA Ab, IgG Reflex To Titer 4 IU (0-24)
[2025-02-24 17:09] LABS: Glucose - Point of Care 99 mg/dl (70-99)
[2025-02-24] MEDS: NOVOLOG FLEXPEN-LOW RESISTANCE SC (17:20)
[2025-02-24] MEDS: TOPROL XL 25 MG PO (20:16)
[2025-02-24] MEDS: NON-FORMULARY ITEM 150 MG PO (21:55)
[2025-02-24] MEDS: DESYREL 50 MG PO (21:58)
[2025-02-24 22:19] LABS: Glucose - Point of Care 134 mg/dl (70-99)
[2025-02-24 23:14] VITALS: BP 110/75
[2025-02-25] MEDS: TORADOL 30 MG IV ×3 (02:30→19:52)
[2025-02-25] MEDS: ROXICODONE 30 MG PO (02:30)
[2025-02-25] MEDS: BENADRYL 25 MG IV ×4 (04:01→23:14)
[2025-02-25] MEDS: DILAUDID 1.5 MG IV ×5 (04:01→23:16)
[2025-02-25] MEDS: VALIUM INJECTION 5 MG IV ×4 (05:21→21:41)
[2025-02-25] MEDS: NON-FORMULARY ITEM 1 UNIT PO (05:21)
--- NOTE | 2025-02-25 06:01 | PTCARENOTE ---
Patient observed requesting frequent PRN medications and asking staff to tract exact times of administration. Patient reports difficulty breathing. This RN offered to initiate Rapid Response for respiratory distress, patient declined, stating 'this
is not an emergency like that' and requested Dilaudid and Benadryl instead. Patient educated that she received both medications approximately 1 hour prior and is not due for additional doses at this time. Patient became argumentative regarding
inability to receive further PRN medications. No acute distress noted on exam. Will continue to monitor closely and provide PRN medications as appropriate per orders.
[2025-02-25 07:04] LABS: Hematocrit 36.7 % (37.0-47.0); Hemoglobin 12.2 g/dL (12.0-16.0); Mean Corp Hgb Conc. 33.2 g/dL (33.0-37.0); Mean Corpuscular Volume 82.7 fL (81.0-99.0); Nucleated Red Blood Cells % 0 %; Platelet Count 279 10^3/uL (130-400); Red Cell Dist. Width 14.6 % (11.5-14.5)
[2025-02-25] MEDS: TOPROL XL 25 MG PO ×2 (07:20→19:48)
[2025-02-25] MEDS: SEROQUEL 100 MG PO (07:20)
[2025-02-25] MEDS: IMDUR (EXTENDED RELEASE) 60 MG PO (07:20)
[2025-02-25] MEDS: DELTASONE 10 MG PO (07:20)
[2025-02-25] MEDS: LOVENOX 50 MG SC ×2 (07:20→19:47)
[2025-02-25] MEDS: PEPCID 20 MG IV ×2 (07:22→19:47)
[2025-02-25] MEDS: NSS (PRESERVATIVE FREE) 8 ML IV ×2 (07:22→19:48)
[2025-02-25] MEDS: NON-FORMULARY ITEM 100 MG PO (07:23)
[2025-02-25 07:27] LABS: Blood Urea Nitrogen 8 mg/dl (7-17); Calcium 7.8 mg/dl (8.4-10.2); Carbon Dioxide 28 mmol/L (22-30); Chloride 105 mmol/L (98-107); Estimated Creatinine Clearance 100 ml/min; Glucose 125 mg/dl (70-99); Potassium 3.4 mmol/L (3.5-5.1); Sodium 136 mmol/L (135-145); eGFR > 60.00
[2025-02-25] MEDS: ZOFRAN 4 MG IV (07:27)
[2025-02-25 07:52] VITALS: BP 113/82
[2025-02-25 08:07] LABS: Glucose - Point of Care 177 mg/dl (70-99)
[2025-02-25] MEDS: NOVOLOG FLEXPEN-LOW RESISTANCE 1 UNITS SC (10:08)
[2025-02-25] MEDS: KCL 40 MEQ PO (10:08)
--- NOTE | 2025-02-25 10:13 | W.PN.HOSP.TC ---
Today's Communication/Plan
-
see A/P
Assessment / Plan
Assessment / Plan
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
syndrome, depression and anxiety and prior to adrenal insufficiency/Mario's disease, chronic pain on high-dose opioids at home who presented to ED with complaint of shakes, fatigue/weakness, restlessness and chest discomfort similar to prior
episode of adrenal crisis.
Symptoms began 2 weeks ago JOURNEYMAN POWER PLANT OPERATOR after the last dose of rituximab.Patient reports that she usually goes into adrenal crisis in the setting of reactions to either medications, infections or flare of lupus. She reports that her current symptoms with
fatigue weakness restlessness and agitation consistent with prior adrenal crisis. She usually takes at least 5 mg of prednisone daily but has been increasing the doses such that she has taken 50 mg daily over this weekend.
She was afebrile, BP normal at 127/90, and normal oxygenation on admission. Xray clear and no cough. No signs of infection. WBC 17.6.
Random cortisol low at 2.6 which is consistent with steroid use.
A/P:
# Questionable Adrenal crisis - HD stable. No electrolyte abnormalities
# Subjective generalized pain
# Concern of drug seeking behavior
Random cortisol low at 2.6 on admission, which is consistent with steroid use.
low suspicion of adrenal crisis (sodium WNL, potassium level WNL on admission, BG WNL, BP WNL)
s/p solu-cortef 200 mg in ED, tapered back to home dose 10 mg daily (concern for steroid induced psychosis)
Searched on PDMP, pt is only prescribed opiates fentanyl patch and oxycodone 15 mg JOURNEYMAN POWER PLANT OPERATOR
d/w pharmacist extensively, cont JOURNEYMAN POWER PLANT OPERATOR fentanyl patch, oxycodone PRN, current IV Dilaudid PRN
Would NOT escalate current pain regimen with low suspicion of adrenal crisis
UDS noted, also noted positive for marijuana which could cause N/V/cyclic vomiting syndrome
Encourage pt to try hot shower and lidocaine cream to see if this could relieve her nausea/cyclic vomiting syndrome
Cont to monitor daily labs
s/p IVF
# Acute TME/delirium, occasional confusion with pressured speech and tangential thought , much resolved
suspect steroid effect with baseline hyperverbal
yanira ruled out per Psych
Limit use of narcotics/benzo etc.
Monitor MS
# Leukocytosis - likely leukemoid reaction and steroid effect
No evidence of acute infection currently.
inflammatory markers CRP 27, ESR 6 on admission
CXR clear, Blood cultures x4 sets so far negative, UA clean
monitor for now off antibiotics. Patient reports CVA allergies reactions to almost all antibiotics that requires Benadryl predosing for any antibiotic. Will hold off antibiotics for now
# HTN
Low suspicion of adrenal crises, resumed JOURNEYMAN POWER PLANT OPERATOR lisinopril
BP stable
# CAD
Continue JOURNEYMAN POWER PLANT OPERATOR Imdur
Continue JOURNEYMAN POWER PLANT OPERATOR metoprolol
# DM II
sliding scale insulin
continue Jardiance
On Mounjaro at home, hold during hospital stay as pt c/o Nausea
# BIPOLAR/Depression
continue JOURNEYMAN POWER PLANT OPERATOR Seroquel, Pristiq
# Lupus- thought to be in remission, status post rituximab 2 weeks JOURNEYMAN POWER PLANT OPERATOR which she gets every 4 months.
inflammatory markers CRP 27, ESR 6, both are low
ZAINAB negative, double-stranded DNA IgG level at 4, WNL
Continue CellCept
She is on high-dose steroids currently
# Pulmonary embolism
Continue Lovenox 50 mg subcu every 12
# Chronic pain and opiate dependence
appears to be combination of rheumatological and reflex sympathetic versus neuropathic pain. On longstanding opioids
Continue fentanyl patch, oxycodone, IV Dilaudid PRN
Bowel regimen
DVT ppx: JOURNEYMAN POWER PLANT OPERATOR therapeutic Lovenox SQ
CODE STATUS�full code
DW RN
total time 51 min
Anticipated Discharge: Within 24 hours
Subjective/Interval History
-
Date of Service: February 25, 2025
Objective Data
-
Labs:
Laboratory Results
02/25/25
06:39
WBC 11.5 H
Hgb 12.2
Hct 36.7 L
Plt Count 279
Sodium 136
Potassium 3.4 L
Chloride 105
Carbon Dioxide 28
BUN 8
Creatinine 0.4 L
Glucose 125 H
Calcium 7.8 L
Vital Signs:
Vital Signs
Temp Pulse Resp BP Pulse Ox
36.8 C 107 16 113/82 100
02/25/25 07:52 02/25/25 07:52 02/25/25 07:52 02/25/25 07:52 02/25/25 07:52
I&O
02/24/25 02/25/25 02/26/25
06:59 06:59 06:59
Intake Total 2099 720 / 720
Balance 2099 720 / 720
Review of Systems
-
History Source: Patient
All other systems: Reviewed and negative
Abdomen/GI: Denies Nausea or Vomiting
Physical Exam
-
General: Well Developed, Well Nourished, No Apparent Distress, Comfortable and Conversant; Negative Respiratory Distress
HEENT: Normocephalic, Atraumatic, Nose Appears Normal and Ears Appear Normal; Negative Oxygen
Respiratory: Clear to Auscultation and Non Labored Respirations; Negative Accessory Resp Muscle Use
Cardiac: Regular Rhythm and S1/S2
GI: Soft, Nontender, Nondistended and Normal Bowel Sounds
Skin: Warm and Dry
Neuro: Awake, Alert and Nonfocal/Grossly Intact
Psych: Calm and Intact Judgement/Insight (somewhat)
Data Reviewed
-
Labs: Labs Reviewed by me
[2025-02-25 11:48] LABS: Glucose - Point of Care 204 mg/dl (70-99)
[2025-02-25] MEDS: REMOVE DURAGESIC PATCH 75 PATCH REMOVE (12:03)
[2025-02-25] MEDS: NOVOLOG FLEXPEN-LOW RESISTANCE 2 UNITS SC (12:41)
--- NOTE | 2025-02-25 15:49 | W.PN.UPDATE ---
Update Note
Progress Note Update
patient seen chart reviewed. discussed with nursing. patient is much the same. she is she says feeling much better although it is true she is taking a signficant amount of pain medication bzp and as well benadryl. she does not appear at all
sedated. i would not say she is hyperactive but she is a bit hyperverbal. as written elsewhere her psychiatrist tells me that is her personality and he has never felt she is bipolar.she took four valium yesterday two the day before. i discussed with
her cutting back today to two daily but she was very apprehensive saying part of the reason she needs it is she hates being in hospital and it has always helped her get through this ordeal and she has never had any trouble transitioning from here to
home. she did get a scrip from her psychiatrist for xanax last on feb 03 o.5 mg to be used bid. she says she keeps all of her meds in order at home and she knows how to take care of herself. she knows too the risks of wd but i suspect these doses
are small enough and of short duration that wd will not be an issue. i would not give her valium scrip to take home with her. she has dr acnas to prescribe bzp as he sees fit. she will be dc likely tomorrow psych signing off.
[2025-02-25 16:23] VITALS: BP 104/74
[2025-02-25 17:11] LABS: Glucose - Point of Care 160 mg/dl (70-99)
[2025-02-25] MEDS: NOVOLOG FLEXPEN-LOW RESISTANCE SC (17:18)
[2025-02-25 22:02] LABS: Glucose - Point of Care 138 mg/dl (70-99)
[2025-02-25] MEDS: NON-FORMULARY ITEM 150 MG PO (22:29)
[2025-02-25] MEDS: DESYREL 50 MG PO (22:30)
[2025-02-25 23:09] VITALS: BP 134/94
[2025-02-26] MEDS: VALIUM INJECTION 5 MG IV ×2 (01:04→09:20)
[2025-02-26 04:06] VITALS: BP 136/89
[2025-02-26] MEDS: BENADRYL 25 MG IV ×3 (04:11→12:31)
[2025-02-26] MEDS: DILAUDID 1.5 MG IV ×3 (04:12→12:30)
[2025-02-26] MEDS: TORADOL 30 MG IV (05:45)
[2025-02-26 07:00] VITALS: BP 105/67
[2025-02-26] MEDS: SEROQUEL 100 MG PO (07:45)
[2025-02-26] MEDS: PEPCID 20 MG IV (07:45)
[2025-02-26] MEDS: LOVENOX 50 MG SC (07:45)
[2025-02-26] MEDS: DELTASONE 10 MG PO (07:45)
[2025-02-26] MEDS: NSS (PRESERVATIVE FREE) 8 ML IV (07:45)
[2025-02-26] MEDS: NON-FORMULARY ITEM 100 MG PO (07:46)
[2025-02-26 08:05] LABS: Blood Urea Nitrogen 9 mg/dl (7-17); Calcium 8.2 mg/dl (8.4-10.2); Carbon Dioxide 26 mmol/L (22-30); Chloride 105 mmol/L (98-107); Estimated Creatinine Clearance 100 ml/min; Glucose 122 mg/dl (70-99); Potassium 3.8 mmol/L (3.5-5.1); Sodium 133 mmol/L (135-145); eGFR > 60.00
[2025-02-26 08:11] LABS: Glucose - Point of Care 118 mg/dl (70-99)
[2025-02-26] MEDS: NOVOLOG FLEXPEN-LOW RESISTANCE SC (08:14)
[2025-02-26 08:21] LABS: Hematocrit 32.6 % (37.0-47.0); Hemoglobin 11.1 g/dL (12.0-16.0); Mean Corp Hgb Conc. 34.0 g/dL (33.0-37.0); Mean Corpuscular Volume 82.7 fL (81.0-99.0); Nucleated Red Blood Cells % 0 %; Platelet Count 232 10^3/uL (130-400); Red Cell Dist. Width 14.6 % (11.5-14.5)
[2025-02-26] MEDS: TOPROL XL 25 MG PO (08:26)
[2025-02-26] MEDS: IMDUR (EXTENDED RELEASE) 60 MG PO (08:26)
--- NOTE | 2025-02-26 10:12 | W.PN.HOSP.TC ---
Today's Communication/Plan
-
DC today
Assessment / Plan
Assessment / Plan
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
syndrome, depression and anxiety and prior to adrenal insufficiency/Mario's disease, chronic pain on high-dose opioids at home who presented to ED with complaint of shakes, fatigue/weakness, restlessness and chest discomfort similar to prior
episode of adrenal crisis.
Symptoms began 2 weeks ago AGGREGATE CONVEYOR OPERATOR after the last dose of rituximab.Patient reports that she usually goes into adrenal crisis in the setting of reactions to either medications, infections or flare of lupus. She reports that her current symptoms with
fatigue weakness restlessness and agitation consistent with prior adrenal crisis. She usually takes at least 5 mg of prednisone daily but has been increasing the doses such that she has taken 50 mg daily over this weekend.
She was afebrile, BP normal at 127/90, and normal oxygenation on admission. Xray clear and no cough. No signs of infection. WBC 17.6.
Random cortisol low at 2.6 which is consistent with steroid use.
A/P:
# Questionable Adrenal crisis - HD stable. No electrolyte abnormalities
# Subjective generalized pain
# Concern of drug seeking behavior
Random cortisol low at 2.6 on admission, which is consistent with steroid use.
low suspicion of adrenal crisis (sodium WNL, potassium level WNL on admission, BG WNL, BP WNL)
s/p solu-cortef 200 mg in ED, tapered back to home dose 10 mg daily (concern for steroid induced psychosis)
Searched on PDMP, pt is only prescribed opiates fentanyl patch and oxycodone 15 mg AGGREGATE CONVEYOR OPERATOR
d/w pharmacist extensively, cont AGGREGATE CONVEYOR OPERATOR fentanyl patch, oxycodone PRN, current IV Dilaudid PRN
Would NOT escalate current pain regimen with low suspicion of adrenal crisis
UDS noted, also noted positive for marijuana which could cause N/V/cyclic vomiting syndrome
Encourage pt to try hot shower and lidocaine cream to see if this could relieve her nausea/cyclic vomiting syndrome
Cont to monitor daily labs
s/p IVF
# Acute TME/delirium, occasional confusion with pressured speech and tangential thought, resolved
suspect steroid effect with baseline hyperverbal
yanira ruled out per Psych
Limit use of narcotics/benzo etc.
Monitor MS
# Leukocytosis - likely leukemoid reaction and steroid effect
No evidence of acute infection currently.
inflammatory markers CRP 27, ESR 6 on admission
CXR clear, Blood cultures x4 sets so far negative, UA clean
monitor for now off antibiotics. Patient reports CVA allergies reactions to almost all antibiotics that requires Benadryl predosing for any antibiotic. Will hold off antibiotics for now
# HTN
Low suspicion of adrenal crises, resumed AGGREGATE CONVEYOR OPERATOR lisinopril
BP stable
# CAD
Continue AGGREGATE CONVEYOR OPERATOR Imdur
Continue AGGREGATE CONVEYOR OPERATOR metoprolol
# DM II
sliding scale insulin
continue Jardiance
On Mounjaro at home, hold during hospital stay as pt c/o Nausea
# BIPOLAR/Depression
continue AGGREGATE CONVEYOR OPERATOR Seroquel, Pristiq
# Lupus- thought to be in remission, status post rituximab 2 weeks AGGREGATE CONVEYOR OPERATOR which she gets every 4 months.
inflammatory markers CRP 27, ESR 6, both are low
ZAINAB negative, double-stranded DNA IgG level at 4, WNL
Continue CellCept
She is on high-dose steroids currently
# Pulmonary embolism
Continue Lovenox 50 mg subcu every 12
# Chronic pain and opiate dependence
appears to be combination of rheumatological and reflex sympathetic versus neuropathic pain. On longstanding opioids
Continue fentanyl patch, oxycodone, IV Dilaudid PRN while in the hospital
resume AGGREGATE CONVEYOR OPERATOR opiate following discharge
Bowel regimen
DVT ppx: AGGREGATE CONVEYOR OPERATOR therapeutic Lovenox SQ
CODE STATUS�full code
DW RN
Anticipated Discharge: Today
Subjective/Interval History
-
Date of Service: February 26, 2025
Objective Data
-
Labs:
Laboratory Results
02/26/25
07:21
WBC 11.8 H
Hgb 11.1 L
Hct 32.6 L
Plt Count 232
Sodium 133 L
Potassium 3.8
Chloride 105
Carbon Dioxide 26
BUN 9
Creatinine 0.4 L
Glucose 122 H
Calcium 8.2 L
Vital Signs:
Vital Signs
Temp Pulse Resp BP Pulse Ox
37.2 C 105 17 118/85 95
02/26/25 07:00 02/26/25 08:26 02/26/25 07:00 02/26/25 08:26 02/26/25 07:15
I&O
02/25/25 02/26/25 02/27/25
06:59 06:59 06:59
Intake Total 720 / 720 660 / 660
Balance 720 / 720 660 / 660
Review of Systems
-
History Source: Patient
All other systems: Reviewed and negative
Abdomen/GI: Denies Nausea or Vomiting
Physical Exam
-
General: Well Developed, Well Nourished, No Apparent Distress, Comfortable and Conversant; Negative Respiratory Distress
HEENT: Normocephalic, Atraumatic, Nose Appears Normal and Ears Appear Normal; Negative Oxygen
Respiratory: Clear to Auscultation and Non Labored Respirations; Negative Accessory Resp Muscle Use
Cardiac: Regular Rhythm and S1/S2
GI: Soft, Nontender, Nondistended and Normal Bowel Sounds
Skin: Warm and Dry
Neuro: Awake, Alert and Nonfocal/Grossly Intact
Psych: Calm and Intact Judgement/Insight (somewhat)
Data Reviewed
-
Labs: Labs Reviewed by me
[2025-02-26 12:05] VITALS: BP 111/72
--- NOTE | 2025-02-26 13:54 | W.DCSUMMARY ---
Discharge Summary
Discharge Data
Date of Admission: 02/22/25
Date of Discharge: 02/26/25
Total time spent discharging patient (in min): 40
-
Pending Results: No
Hospital Course
Principal Diagnosis:
Questionable Adrenal crisis - HD stable. No electrolyte abnormalities
Subjective generalized pain with concern of drug seeking behavior
Leukocytosis, likely leukemoid reaction and steroid effect
Acute TME/delirium, occasional confusion with pressured speech and tangential thought, resolved
Chronic Diagnoses:�
Adrenal insufficiency/Mario's disease
HTN on lisinopril
CAD, on Imdur and metoprolol
DM II
Anxiety/ depression, on seroquel, pristiq
Lupus complicated by lupus myocarditis
antiphospholipid syndrome
Pulmonary embolism, on lovenox 50 mg subcu every 12 GAGE MAKER
Chronic pain and opiate dependence
Consultations:�
Psychiatry
Procedures:�
None
Clinical course:�
This is a 49 year old female with extensive past medical history as stated above, who presented with subjective body ache and pain.
Problem 1:
Questionable Adrenal crisis - HD stable. No electrolyte abnormalities.
Subjective generalized pain with concern of drug seeking behavior.
Her random cortisol level was low at 2.6 on admission, which is consistent with chronic steroid use.
There was low suspicion of adrenal crisis given her sodium level was within normal limits, potassium level within normal limit limit on admission, blood glucose and blood pressure both in the normal range.
She did receive IV solu-cortef 200 mg in the emergency room, and steroid was tapered back to home dose 10 mg daily due to concern for steroid induced psychosis.
Her UDS was positive for opioid, oxycodone, fentanyl, tricyclic, benzo, and marijuana.
She also experienced nausea which could be due to cyclic vomiting syndrome from marijuana.
Her symptoms resolved while in the hospital, and she was cleared for discharge to follow-up with her specialist outpatient.
Problem 2:
Leukocytosis - likely leukemoid reaction and steroid effect.
No evidence of acute infection. Her inflammatory markers CRP and ESR were 27 and 6 on admission.
Her CXR was clear, blood cultures x4 sets negative, UA clean.
Problem 3:
Acute TME/delirium, occasional confusion with pressured speech and tangential thought, resolved.
This was felt likely due to steroid side effect.
IV hydrocortisone was very quickly tapered back to her home prednisone dose with resolution of the confusion.
She was seen by psychiatrist, and yanira was ruled out.
As for the rest of her medical problems, they were stable during her hospital stay.
Discharge Plan
-
Patient Disposition: Home (Routine Discharge)
Discharge Diagnosis/Procedures: Questionable Adrenal crisis - HD stable. No electrolyte abnormalities ;
Subjective generalized pain
Condition: Good
Diet: As tolerated
Activity: As tolerated
Driving Restrictions: Not until seen by your Dr
Blood Work: CBC, BMP with your PCP in 1 week
Referrals:
Kj Guzman MD [Family Provider, Family Practice] - in less than 1 week
Prescriptions:
New
(DME) CBC wih diff
See Rx Instructions .Route .MEDSUPPLY Qty: 1 0RF
Rx Instructions:
02/28 to 03/04, result to PCP
# mild leukocytosis
(DME) BMP
See Rx Instructions .Route .MEDSUPPLY Qty: 1 0RF
Rx Instructions:
02/28 to 03/04, result to PCP
# hypokalemia
Continued
albuterol sulfate 1 PUFF HFA aerosol inhaler
2 puff inhalation R Q4 PRN (Reason: sob/wheezing)
nitroglycerin 0.4 MG tablet, sublingual
0.4 mg sublingual Q5MX3 PRN (Reason: sharp chest pain)
Patient Comments:
last taken in march
alprazolam 0.5 mg Tablet
0.5 mg PO BID PRN (Reason: anxiety) Qty: 0
Patient Comments:
08/07/2022: last filled 07/26/22, 20 tabs for 10 days from [id number]
isosorbide mononitrate 60 mg tablet extended release 24 hr
60 mg PO DAILY
prednisone 1 mg tablet
10 mg PO DAILY
quetiapine 50 mg tablet
100 mg PO DAILY
desvenlafaxine succinate 50 mg tablet extended release 24 hr
100 mg PO DAILY
Jardiance 10 mg tablet
10 mg PO DAILY
lisinopril 10 mg Tablet
20 mg PO DAILY PRN (Reason: sbp>130)
quetiapine 150 mg tablet extended release 24 hr
150 mg PO HS
oxycodone 15 mg tablet
30 mg PO Q8HPRN PRN (Reason: severe pain)
Patient Comments:
180 tabs for 30 days
omeprazole 40 mg Capsule,Delayed Release(Dr/Ec)
40 mg PO DAILYPRN PRN (Reason: acid reflux)
mycophenolate mofetil [CellCept] 500 mg Tablet
500 mg PO BID
Mounjaro 15 mg/0.5 mL Pen Injector
15 mg SC TU
fluticasone propion-salmeterol 250-50 mcg/dose blister with device
1 ea INHALATION BIDPRN PRN (Reason: shortness of breath)
trazodone 50 mg tablet
50 - 100 mg PO HSPRN PRN (Reason: insomnia)
clobetasol 0.05 % cream
1 applic TOPICAL DAILYPRN PRN (Reason: rash )
fexofenadine 180 mg Tablet
180 mg PO DAILYPRN PRN (Reason: hives)
valacyclovir 500 mg tablet
500 mg PO DAILYPRN PRN (Reason: blisters)
oxycodone 15 mg Tablet
15 mg PO Q8HPRN PRN (Reason: moderate pain)
isosorbide mononitrate 60 mg Tablet Extended Release 24 Hr
30 mg PO QPMPRN PRN (Reason: chest pains)
levothyroxine [Synthroid] 88 mcg tablet
88 mcg PO MOTUWETHFR@0600
Rx Instructions:
pt requires brand name
diphenhydramine HCl [Benadryl] 25 mg Capsule
25 - 50 mg PO Q4HPRN PRN (Reason: airway tightening and rash)
cyanocobalamin (vitamin B-12) 1,000 mcg/mL solution
1,000 mcg IM DEVINE
calcipotriene 0.005 % cream
1 applic TOPICAL BIDPRN PRN (Reason: rashes)
metoprolol succinate 25 mg tablet extended release 24 hr
25 mg PO BID
epinephrine 0.3 mg/0.3 mL auto-injector
0.3 mg IM PRN PRN (Reason: anaphylaxis)
fentanyl 75 mcg/hr Patch 72 Hour
1 patch TRANSDERMAL Q72H
quetiapine 50 mg tablet
50 mg PO HSPRN PRN (Reason: agitation, sleep)
lubiprostone 24 mcg capsule
24 mcg PO DAILYPRN PRN (Reason: constipation)
cholecalciferol (vitamin D3) 25 mcg (1,000 unit) tablet
125 mcg PO DAILY
Linzess 290 mcg capsule
290 mcg PO DAILYPRN PRN (Reason: constipation)
Repatha SureClick 140 mg/mL pen injector
140 mg SC Q14D
Discharge Orders:
Discharge Patient (As Directed); Ordered 02/26/25
Ordered By: Margaret Uribe
Discharge Date and Time
Discharge Date/Time: 02/26/25 13:00
Print Language: JAPANESE
== END 2025-02-26 13:00 | disposition home or self-care (01) | DRG 643 ==
LOC: 3 WEST ACU 06:03
PROVIDERS: ADMITTING PHYSICIAN Internal Medicine; ATTENDING PHYSICIAN Internal Medicine; CONSULT PHYSICIAN Psychiatry & Neurology Psychiatry; EMERGENCY PHYSICIAN Student in an Organized Health Care Education/Training Program; FAMILY PHYSICIAN Family Medicine
DX: E27.2 Addisonian crisis (principal); G92.8 Other toxic encephalopathy; I26.99 Other pulmonary embolism without acute cor pulmonale; I41 Myocarditis in diseases classified elsewhere; D68.61 Antiphospholipid syndrome; F11.20 Opioid dependence, uncomplicated; G89.4 Chronic pain syndrome; I10 Essential (primary) hypertension; I25.10 Atherosclerotic heart disease of native coronary artery without angina pectoris; F31.9 Bipolar disorder, unspecified; M32.9 Systemic lupus erythematosus, unspecified; D72.823 Leukemoid reaction; E09.9 Drug or chemical induced diabetes mellitus without complications; E27.1 Primary adrenocortical insufficiency; E78.5 Hyperlipidemia, unspecified; E87.6 Hypokalemia; E11.9 Type 2 diabetes mellitus without complications; F41.1 Generalized anxiety disorder; T38.0X5A Adverse effect of glucocorticoids and synthetic analogues, initial encounter; J45.909 Unspecified asthma, uncomplicated; K21.9 Gastro-esophageal reflux disease without esophagitis; K59.00 Constipation, unspecified; Z79.52 Long term (current) use of systemic steroids; Z79.84 Long term (current) use of oral hypoglycemic drugs; Z79.890 Hormone replacement therapy; Z79.899 Other long term (current) drug therapy; Z91.199 Patient's noncompliance with other medical treatment and regimen due to unspecified reason
CPT/HCPCS: 71046; 80048; 80053; 80306; 80307; 81003; 82533; 82962; 83605; 83735; 84703; 85025; 85652; 86038; 86140; 86225; 87040; 87045; 87046; 87427; 93005; 96361; 96374; 96375; 96376; 99285